=== PATIENT | male | born 1985 | race Caucasian/White ===

== ENCOUNTER 2021-07-06 22:16 | Emergency (ER) | payer SELFPAY ==
[~2021-07-06] VITALS: Ht 172.7 cm; Wt 73.0 kg
[2021-07-06 22:22] VITALS: BP 151/93
== END 2021-07-07 03:42 | disposition left against medical advice (07) ==
LOC: ER 22:16
DX: Z53.21 Procedure and treatment not carried out due to patient leaving prior to being seen by health care provider (principal)

== ENCOUNTER 2022-06-30 17:09 | Emergency (ER) | payer MEDICAID ==
[~2022-06-30] VITALS: Ht 170.2 cm; Wt 87.0 kg
[2022-06-30] MEDS ORDERED: LISINOPRIL 40MG TABLET PO ONE (17:45)
[2022-06-30] MEDS ORDERED: IBUPROFEN 600MG TABLET PO ONE (17:45)
[2022-06-30] MEDS ORDERED: LISINOPRIL 20MG TABLET PO NR (18:00)
[2022-06-30] MEDS ORDERED: LISI40TA13 MT (18:30)
[2022-06-30 18:56] VITALS: BP 141/100
== END 2022-06-30 19:01 | disposition home or self-care (01) ==
LOC: ER 17:09
DX: I10 Essential (primary) hypertension (principal); Z91.14 Patient's other noncompliance with medication regimen
CPT/HCPCS: 99283

== ENCOUNTER 2024-09-18 13:39 | Emergency (ER) | payer MEDICAID, OTHER ==
[~2024-09-18] VITALS: Ht 172.7 cm; Wt 92.0 kg
[~2024-09-18 13:39] MED LIST: LISI40TA13 MT
[2024-09-18 13:43] VITALS: O2SAT 97
[2024-09-18] MEDS: SODIUM CHLORIDE 0.9% 1,000 ML IV ONE (14:12)
[2024-09-18 15:04] LABS: BASOPHILS % 1.1 % (0.0-2.0); DIFFERENTIAL COMMENT 1; EOSINOPHILS % 6.7 % (0.0-5.0); HEMATOCRIT. 49.1 % (42.0-52.0); HEMOGLOBIN. 16.4 g/dL (14.0-18.0); LYMPHOCYTES % 24.8 % (20.0-50.0); MEAN CORPUSCULAR HEMOGLOBIN 32.3 pg (28.0-32.0); MEAN CORPUSCULAR HGB CONC 33.5 g/dL (31.0-37.0); MEAN CORPUSCULAR VOLUME 96.5 fL (80.0-94.0); MONOCYTES % 7.8 % (2.0-8.0); NEUTROPHILS % 59.6 % (40.0-76.0); RED BLOOD CELL COUNT 5.09 mill/uL (4.7-6.1); WHITE BLOOD COUNT 7.8 x1000/uL (4.5-11.0)
[2024-09-18 15:20] LABS: CHLORIDE 100 mEq/L (98-107); POTASSIUM 4.6 mEq/L (3.5-5.1); SODIUM 136 mEq/L (136-145)
[2024-09-18 15:22] LABS: CALCIUM 9.3 mg/dL (8.7-10.4); CARBON DIOXIDE 23 mEq/L (21-32)
[2024-09-18 15:27] LABS: ETHANOL BLOOD 11 mg/dL (<10); GLUCOSE 130 mg/dL (70-105); TROPONIN I HIGH SENSITIVITY 27 ng/L (3.0-53); UREA NITROGEN BLOOD 19 mg/dL (9-23)
[2024-09-18 15:44] LABS: MEAN PLATELET VOLUME 11.2 fl (7.4-10.4); PLATELET 191 x1000/uL (130-400)
[2024-09-18] MEDS ORDERED: IOHEXOL-350 100 ML BOTTLE ONE (16:53)
[2024-09-18 16:56] LABS: D-DIMER 0.48 mg/L FEU (<0.50); PROTHROMBIN TIME 10.7 sec (9.6-11.0)
[2024-09-18 17:00] LABS: TROPONIN I HIGH SENSITIVITY 28 ng/L (3.0-53)
[2024-09-18] MEDS: CARVEDILOL 3.125 MG TABLET PO NR (17:20)
[2024-09-18 18:17] VITALS: BP 136/92; PULSE 114; RESP 17; TEMP 36.7; O2SAT 99
== END 2024-09-18 18:59 | disposition short-term general hospital (02) ==
LOC: ER 13:39 → CANBEDREQ 18:03 → ER 18:59
DX: R55 Syncope and collapse (principal); R07.89 Other chest pain; I10 Essential (primary) hypertension; Z90.49 Acquired absence of other specified parts of digestive tract; Z98.890 Other specified postprocedural states
CPT/HCPCS: 80048; 80320; 83880; 85025; 85379; 85610; 84484; 36415; 71045; 71275; 93005; 96360; 99285; Q9967; J7030; Z7610; G0480

== ENCOUNTER 2025-02-06 11:45 | Emergency (ER) | payer OTHER ==
[~2025-02-06] VITALS: Ht 170.2 cm; Wt 77.0 kg
[2025-02-06 11:47] VITALS: O2SAT 99
[2025-02-06 12:32] LABS: BASOPHILS % 0.5 % (0.0-2.0); EOSINOPHILS % 1.4 % (0.0-5.0); HEMATOCRIT. 44.0 % (42.0-52.0); HEMOGLOBIN. 14.9 g/dL (14.0-18.0); LYMPHOCYTES % 13.6 % (20.0-50.0); MEAN PLATELET VOLUME 10.0 fl (7.4-10.4); MONOCYTES % 5.7 % (2.0-8.0); NEUTROPHILS % 78.8 % (40.0-76.0); PLATELET 171 x1000/uL (130-400); RED BLOOD CELL COUNT 4.45 mill/uL (4.7-6.1); RED CELL DISTRIBUTION WIDTH 12.7 % (11.6-14.6)
[2025-02-06] MEDS: LORAZEPAM 2MG/ML UD SYRINGE IM SCH (12:32)
[2025-02-06] MEDS: OLANZAPINE 10 MG/VIAL IM ONE (12:32)
[2025-02-06 12:49] LABS: CREATININE 1.0 mg/dL (0.6-1.3); UREA NITROGEN BLOOD 13 mg/dL (9-23)
[2025-02-06 12:50] LABS: ASPARTATE AMINOTRANSFERASE 52 IU/L (<34); ETHANOL BLOOD 88 mg/dL (<10)
[2025-02-06 12:51] LABS: BILIRUBIN DIRECT 0.7 mg/dL (<=3.0); BILIRUBIN TOTAL 1.7 mg/dL (0.1-1.0); PROTEIN TOTAL 7.2 g/dL (6.0-8.3)
[2025-02-08 04:05] LABS: CLARITY URINE CLEAR (CLEAR); COLOR URINE DARK YELLOW (YELLOW); GLUCOSE URINE NEGATIVE (NEGATIVE); KETONES URINE 1+ (NEGATIVE); LEUKOCYTE ESTERASE URINE 1+ (NEGATIVE); NITRITE URINE NEGATIVE (NEGATIVE); OCCULT BLOOD URINE NEGATIVE (NEGATIVE); PH URINE 5.5 (4.5-8.0); PROTEIN URINE NEGATIVE (NEGATIVE); SPECIFIC GRAVITY URINE 1.029 (1.005-1.030); UROBILINOGEN URINE 1.0 E.U./dL (0.2-1.0)
[2025-02-08 04:39] LABS: *AMPHETAMINES SCREEN URINE PRESUMPTIVE POSITIVE (NEGATIVE); *BENZODIAZEPINES SCREEN URINE NEGATIVE (NEGATIVE)
[2025-02-08 04:40] LABS: *BARBITURATES SCREEN URINE NEGATIVE (NEGATIVE); *COCAINE SCREEN URINE NEGATIVE (NEGATIVE); CANNABINOID URINE SCREEN NEGATIVE (NEGATIVE); ECSTASY MDMA SCREEN URINE NEGATIVE (NEGATIVE); METHADONE URINE SCREEN NEGATIVE (NEGATIVE); OPIATES URINE SCREEN NEGATIVE (NEGATIVE); PHENCYCLIDINE URINE SCREEN NEGATIVE (NEGATIVE)
[2025-02-08 05:09] LABS: RBC URINE 0-2 /hpf (0-2); SQUAMOUS EPITHELIAL CELL URINE NONE SEEN /lpf (RARE/1+)
[2025-02-08 05:10] LABS: BACTERIA URINE NONE SEEN
[2025-02-08] MEDS: FLUOXETINE HCL 10 MG CAPSULE PO SCH (10:19)
[2025-02-10 10:49] VITALS: BP 119/78; PULSE 80; RESP 16; TEMP 36.9; O2SAT 100
== END 2025-02-10 10:59 | disposition home or self-care (01) ==
LOC: ER 11:50
DX: R45.851 Suicidal ideations (principal); I11.0 Hypertensive heart disease with heart failure; I50.9 Heart failure, unspecified; G40.909 Epilepsy, unspecified, not intractable, without status epilepticus; Z20.822 Contact with and (suspected) exposure to COVID-19; Z98.890 Other specified postprocedural states
CPT/HCPCS: 80076; 80305; 80048; 81001; 80307; 80329; 80320; 85025; 36415; 93005; 96372; 99285; 87426; J3490; J2060; Z7610; G0480